=== PATIENT | male | born 1995 | race American Indian/Alaskan Native ===

== ENCOUNTER 2021-12-12 14:12 | Emergency (ER) | payer SELFPAY ==
[2021-12-12] MEDS: Ketorolac 30 MG/ML SDV IM ONE (15:14)
[2021-12-12] MEDS: Tetracaine HCl/PF 0.5% 4 ML Bottle ONE (15:15)
== END 2021-12-12 15:23 | disposition home or self-care (01) ==
LOC: DL.ED 14:12
DX: H66.91 Otitis media, unspecified, right ear (principal); K08.89 Other specified disorders of teeth and supporting structures; Z88.0 Allergy status to penicillin; Z86.16 Personal history of COVID-19
CPT/HCPCS: 96372; 99282; J1885